=== PATIENT | female | born 1960 | race Caucasian/White ===

== ENCOUNTER 2017-06-03 13:36 | Inpatient (IN) | payer MEDICAID ==
--- NOTE | 2017-06-03 13:54 | ED Physician Chart ---
ED Chief Complaint/HPI - Patient Information Date Seen:: 06/03/17 Time Seen:: 13:20 Chief Complaint:: Abdominal Pain History of Present Illness:: onset x 3 days of intermittent, LLQ, crampy Abdominal Pain radiating to the left flank and groin; no trauma, H/As, S/T, neck pain, C/P. SOB, cough, A/N/V/D/ C, fever, chills, or urinary s/s Allergies:: Allergies Allergy/AdvReac Type Severity Reaction Status Date / Time No Known Allergies Allergy Verified 06/03/17 13:42 Vitals:: Vital Signs - 8 hr 06/03/17 13:42 Temp 98.1 F HR 84 RR 21 BP 121/77 O2 Sat % 97 Historian:: Patient, Family Member Review:: Nurse's Note Reviewed ED Review of Systems - Review of Systems General/Constitutional: No fever, No chills, No weight loss, No weakness, No diaphoresis, No edema, No loss of appetite Skin: No skin lesions, No rash, No bruising Head: No headache, No light-headedness Eyes: No loss of vision, No pain, No diplopia ENT: No earache, No nasal drainage, No sore throat, No tinnitus Neck: No neck pain, No swelling, No thyromegaly, No stiffness, No mass noted Cardio Vascular: No chest pain, No palpitations, No PND, No orthopnea, No edema Pulmonary: No SOB, No cough, No sputum, No wheezing GI: No nausea, No vomiting, No diarrhea, Pain, No melena, No hematochezia, No constipation, No hematemesis G/U: No dysuria, No frequency, No hematuria, No nacturia [employer]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 discharge, No abnormal vaginal bleed, No contraction Musculoskeletal: No bone or joint pain, Back pain, No muscle pain Endocrine: No polyuria, No polydipsia Psychiatric: No prior psych history, No depression, No anxiety, No suicidal ideation, No homicidal ideation, No auditory hallucination, No visual hallucination Hematopoietic: No bruising, No lymphadenopathy Allergic/Immuno: No urticaria, No angioedema Neurological: No syncope, No focal symptoms, No weakness, No paresthesia, No headache, No seizure, No dizziness, No confusion, No vertigo ED Past Medical History - Past Medical History Obtainable: Yes Past Medical History: No significant medical hx Family History: None Social History: Smoker, No Alcohol, No Drug Use, Single Surgical History: None Psychiatricy History: None Medication: Reviewed ED Physical Exam - Physical Examination General/Constitutional: Awake, Well-developed, well-nourished, Alert, No distress, GCS 15, Non-toxic appearing, Ambulatory Head: Atraumatic Eyes: Lids, conjuctiva normal, PERRL, EOMI Skin: Nl inspection, No rash, No skin lesions, No ecchymosis, Well hydrated, No lymphadenopathy ENMT: External ears, nose nl, TM canals nl, Nasal exam nl, Lips, teeth, gums nl , Oropharynx nl, Tonsils nl Neck: Nontender, Full ROM w/o pain, No JVD, No nuchal rigidity, No bruit, No mass, No stridor Other Neck comments:: Supple; no meningeal signs; no cervical tenderness; no bruits Respiratory: Nl effort/Exclusion, Clear to Auscultation, No Wheeze/Rhonchi/Rales Cardio Vascular: RRR, No murmur, gallop, rubs, NL S1 S2, Carotid/Femoral/Distal pulses equal bilaterally GI: No tenderness/rebounding/guarding, No organomegaly, No hernia, Normal BS's, Nondistended, No mass/bruits, No McBurney tenderness, Rectum exam nl Other GI comments:: no pulsatile masses : No CVA tenderness Extremities: No tenderness or effusion, Full ROM, normal strength in all extremities, No edema, Normal digits & nails Neuro/Psych: Alert/oriented, DTR's symmetric, Normal sensory exam, Normal motor strength, Judgement/insight normal, Mood normal, Normal gait, No focal deficits Misc: Normal back, No paraspinal tenderness ED Labs/Radiology/EKG Results - Lab Results Comments:: Na+: 132; H/H: 11.8/35.3; U/A: + Bacteria - EKG Interpretations EKG Time:: 14:16 Rate & Rhythm: 86; NSR Comments:: non-specific st-t changes ED Septic Shock - . Is Septic Shock (SBP<90, OR Lactate>4 mmol\L) present?: No - <6hrs of presentation: Vital Signs: Vital Signs - 8 hr 06/03/17 13:42 Temp 98.1 F HR 84 RR 21 BP 121/77 O2 Sat % 97 ED Reassessment (Disposition) - Diagnosis Diagnosis:: Dx: Abdominal Pain;Flank Pain; Back Pain; Anemia; Hyponatremia; Dehydration; Diverticulitis; UTI
[2017-06-03] MEDS ORDERED: Sodium Chloride 0.9% 1,000 ML IV ONE (13:57)
[2017-06-03] MEDS ORDERED: Morphine Sulfate 2 mg/mL 1mL Syr IVP ONE (13:57)
[2017-06-03] MEDS ORDERED: Morphine Sulfate 2 mg/mL 1mL Syr ONE (14:21)
[2017-06-03 14:32] LABS: HEMATOCRIT 35.3 % (41.0-60); HEMOGLOBIN 11.8 gm/dL (12-16); MEAN CELL VOLUME 88.3 fl (81-100); MEAN CORPUSCULAR HEMOGLOBIN 29.6 pg (27.0-31.0); MEAN CORPUSCULAR HGB CONC 33.5 pg (28.0-36.0); MEAN PLATELET VOLUME 7.7 fl; PLATELET COUNT 189 Th/cmm (150-400); RED CELL DISTRIBUTION WIDTH 13.5 % (11.5-20.0)
[2017-06-03 14:33] LABS: MANUAL DIFF REQUIRED? YES
[2017-06-03 14:41] LABS: INR 0.94 (0.5-1.4); PROTHROMBIN TIME (TEST) 9.8 SECONDS (9.5-11.5)
[2017-06-03 14:44] LABS: ALB/GLOB RATIO 1.2 (1.0-1.8); ALBUMIN 3.5 gm/dL (3.7-5.3); ALKALINE PHOSPHATASE 90 U/L (34-104); ANION GAP 6.1 (7.0-16.0); BILIRUBIN,TOTAL 0.5 mg/dL (0.3-1.0); BUN - UREA NITROGEN 19 mg/dL (7-25); CALCIUM SERUM 8.9 mg/dL (8.6-10.3); CARBON DIOXIDE 28.6 mEq/L (21.0-31.0); CHLORIDE 101 mEq/L (98-107); CHOLESTEROL 132 mg/dL (<200); CREATININE - SERUM 0.6 mg/dL (0.6-1.2); CREATININE KINASE 53 U/L (30-223); GFR AFRICAN-AMERICAN > 60.0 ml/min (>90); GFR NON AFRICAN-AMERICAN > 60.0 ml/min; GLUCOSE 101 mg/dL (70-105); HDL -HIGH DENSITY LIPOPROTEIN 68 mg/dL (23-92); POTASSIUM SERUM 3.7 mEq/L (3.5-5.1); SGOT 33 U/L (13-39); SGPT/ALT 28 U/L (7-52); SODIUM SERUM 132 mEq/L (136-145); TOTAL PROTEIN,SERUM 6.5 gm/dL (6.0-8.3); TRIGLYCERIDES 36 mg/dL (<150)
[2017-06-03 14:45] LABS: AMYLASE SERUM 63 U/L (29-103); LIPASE 12 U/L (11-82)
[2017-06-03] MEDS ORDERED: cefTRIAXone 1 GM in Sodium Chloride 0.9% 50 ML IV ONE (15:02)
[2017-06-03 15:36] LABS: URINE MICROSCOPIC INDICATED? YES; URINE SOURCE CLEAN C
[2017-06-03 15:53] LABS: URINE BILIRUBIN NEGATIVE (NEGATIVE); URINE BLOOD NEGATIVE (NEGATIVE); URINE GLUCOSE (UA) NEGATIVE (NEGATIVE); URINE KETONE NEGATIVE (NEGATIVE); URINE LEUKOCYTE ESTERASE NEGATIVE (NEGATIVE); URINE NITRATE NEGATIVE (NEGATIVE); URINE PROTEIN NEGATIVE (NEGATIVE); URINE UROBILINOGEN 0.2 E.U./dL (0.2 - 1.0)
[2017-06-03 15:59] LABS: URINE CLARITY SLIGHTLY HAZY (CLEAR); URINE COLOR YELLOW
[2017-06-03 16:00] LABS: URINE AMORPHOUS SEDIMENT MODERATE URATES (NONE SEEN); URINE BACTERIA MANY /hpf (NONE SEEN); URINE EPITHELIAL CELLS RARE /lpf (FEW); URINE RBC NONE SEEN /hpf (0-5); URINE WBC 0-2 /hpf (0-5)
[2017-06-03 16:10] LABS: NEUTROPHILS 28 % (40-80)
[2017-06-03 16:11] LABS: BASOPHIL 1 % (0-3); EOSINOPHIL 11 % (0-5); LYMPHOCYTE 53 % (20-50); MONOCYTE 7 % (2-10)
[2017-06-03] MEDS ORDERED: Morphine Sulfate 2 mg/mL 1mL Syr IVP PRN (22:14)
[2017-06-03] MEDS ORDERED: Fleet Enema 135 mL RC ONE (22:23)
[2017-06-04 00:19] VITALS: BP 102/58
[2017-06-04 06:36] LABS: % BASOPHILS 0.8 % (0.0-2.0); % EOSINOPHILS 8.3 % (0.0-5.0); % LYMPHOCYTES 56.6 % (20.0-50.0); % MONOCYTES 6.5 % (2.0-10.0); % NEUTROPHILS 27.8 % (40.0-80.0); EOSINOPHILE ABSOLUTE 0.4 Th/cmm (0.1-0.4); HEMATOCRIT 37.9 % (41.0-60); HEMOGLOBIN 12.7 gm/dL (12-16); LYMPHOCYTE ABSOLUTE 3.1 Th/cmm (1.5-3.0); MEAN CELL VOLUME 88.5 fl (81-100); MEAN CORPUSCULAR HEMOGLOBIN 29.6 pg (27.0-31.0); MEAN CORPUSCULAR HGB CONC 33.4 pg (28.0-36.0); MEAN PLATELET VOLUME 7.9 fl; MONOCYTE ABSOLUTE 0.3 Th/cmm (0.3-1.0); NEUTROPHILE ABSOLUTE 1.4 Th/cmm (1.8-8.0); PLATELET COUNT 177 Th/cmm (150-400); RED BLOOD COUNT 4.28 Mil/cmm (3.80-5.10); RED CELL DISTRIBUTION WIDTH 13.6 % (11.5-20.0); WHITE BLOOD COUNT 5.2 Th/cmm (4.8-10.8)
[2017-06-04 07:07] LABS: ALB/GLOB RATIO 1.1 (1.0-1.8); ALBUMIN 3.1 gm/dL (3.7-5.3); ALKALINE PHOSPHATASE 71 U/L (34-104); ANION GAP 8.1 (7.0-16.0); BILIRUBIN,TOTAL 0.8 mg/dL (0.3-1.0); BUN - UREA NITROGEN 15 mg/dL (7-25); CALCIUM SERUM 8.9 mg/dL (8.6-10.3); CARBON DIOXIDE 27.7 mEq/L (21.0-31.0); CHLORIDE 104 mEq/L (98-107); CREATININE - SERUM 0.6 mg/dL (0.6-1.2); GFR AFRICAN-AMERICAN > 60.0 ml/min (>90); GFR NON AFRICAN-AMERICAN > 60.0 ml/min; GLUCOSE 80 mg/dL (70-105); POTASSIUM SERUM 3.8 mEq/L (3.5-5.1); SGOT 37 U/L (13-39); SGPT/ALT 30 U/L (7-52); SODIUM SERUM 136 mEq/L (136-145)
--- NOTE | 2017-06-04 08:25 | Diagnostic Imaging Report ---
Exam: CT examination of the pelvis. HISTORY: Abdominal pain. Total DLP equals 227 CTDI equals 8.4 Findings: Multiple views of the section the abdomen pelvis obtained from lower thorax to the pubic symphysis without the administration of oral or intravenous contrast material no prior studies available comparison. The study demonstrates atelectatic changes lung bases bilaterally. The study is limited without the administration of intravenous or oral contrast material. There is evidence for hepatomegaly. The spleen is intact. Large amount of fecal content is noted throughout the colon indicative fecal impaction. The abdominal aorta and iliac vessels calcified. The kidneys demonstrate no evidence of obstructive uropathy or nephrolithiasis. The pancreas poorly seen. The gallbladder is distended. The urinary bladder is distended. Enlarged uterus most likely due to fibroid infiltration ultrasound examination of pelvis recommended. Bony structures demonstrate no evidence for lytic or blastic lesions. IMPRESSION: Limited examination without contrast administration and lacunar fat planes. Fecal impaction. Distended gallbladder Distended urinary bladder. Diffuse vascular calcifications. Enlarged uterus, question fibroid infiltration. Degenerative changes lower lumbar sacral spine, retrolisthesis of L4 lumbar vertebra second-degree. Spondylolysis at L5 -S1 level.
--- NOTE | 2017-06-04 08:32 | General Progress Note ---
Subjective - Review of Systems Service Date: 06/04/17 Events since last encounter: consult dictated drug addict, on Methadone has dilated GB - HIDA ordered sciatic pain left leg - MRI ordered Objective - Results Result Diagrams: 06/04/17 06:15 06/04/17 06:15 Recent Labs: Laboratory Last Values WBC 5.2 Th/cmm (4.8-10.8) 06/04/17 06:15 RBC 4.28 Mil/cmm (3.80-5.10) 06/04/17 06:15 Hgb 12.7 gm/dL (12-16) 06/04/17 06:15 Hct 37.9 % (41.0-60) L 06/04/17 06:15 MCV 88.5 fl (81-100) 06/04/17 06:15 MCH 29.6 pg (27.0-31.0) 06/04/17 06:15 MCHC Differential 33.4 pg (28.0-36.0) 06/04/17 06:15 RDW 13.6 % (11.5-20.0) 06/04/17 06:15 Plt Count 177 Th/cmm (150-400) 06/04/17 06:15 MPV 7.9 fl 06/04/17 06:15 Neutrophils % 27.8 % (40.0-80.0) L 06/04/17 06:15 Lymphocytes % 56.6 % (20.0-50.0) H 06/04/17 06:15 Monocytes % 6.5 % (2.0-10.0) 06/04/17 06:15 Eosinophils % 8.3 % (0.0-5.0) H 06/04/17 06:15 Basophils % 0.8 % (0.0-2.0) 06/04/17 06:15 Neutrophils (Manual) 28 % (40-80) L 06/03/17 14:13 Lymphocytes 53 % (20-50) H 06/03/17 14:13 Monocytes 7 % (2-10) 06/03/17 14:13 Eosinophils 11 % (0-5) H 06/03/17 14:13 Basophils 1 % (0-3) 06/03/17 14:13 Smear Path Review Y 06/03/17 14:13 PT 9.8 SECONDS (9.5-11.5) 06/03/17 14:13 INR 0.94 (0.5-1.4) 06/03/17 14:13 Sodium 136 mEq/L (136-145) 06/04/17 06:15 Potassium 3.8 mEq/L (3.5-5.1) 06/04/17 06:15 Chloride 104 mEq/L (98-107) 06/04/17 06:15 Carbon Dioxide 27.7 mEq/L (21.0-31.0) 06/04/17 06:15 Anion Gap 8.1 (7.0-16.0) 06/04/17 06:15 BUN 15 mg/dL (7-25) 06/04/17 06:15 Creatinine 0.6 mg/dL (0.6-1.2) 06/04/17 06:15 Est GFR ( Amer) > 60.0 ml/min (>90) 06/04/17 06:15 Est GFR (Non-Af Amer) > 60.0 ml/min 06/04/17 06:15 BUN/Creatinine Ratio 25.0 06/04/17 06:15 Glucose 80 mg/dL (70-105) 06/04/17 06:15 Calcium 8.9 mg/dL (8.6-10.3) 06/04/17 06:15 Total Bilirubin 0.8 mg/dL (0.3-1.0) 06/04/17 06:15 AST 37 U/L (13-39) 06/04/17 06:15 ALT 30 U/L (7-52) 06/04/17 06:15 Alkaline Phosphatase 71 U/L (34-104) 06/04/17 06:15 Creatine Kinase 53 U/L (30-223) 06/03/17 14:13 Troponin I < 0.01 ng/mL (0.01-0.05) L 06/03/17 14:13 B-Natriuretic Peptide 16.3 pg/mL (5.0-100.0) 06/03/17 14:13 Total Protein 6.0 gm/dL (6.0-8.3) 06/04/17 06:15 Albumin 3.1 gm/dL (3.7-5.3) L 06/04/17 06:15 Globulin 2.9 gm/dL 06/04/17 06:15 Albumin/Globulin Ratio 1.1 (1.0-1.8) 06/04/17 06:15 Triglycerides 36 mg/dL (<150) 06/03/17 14:13 Cholesterol 132 mg/dL (<200) 06/03/17 14:13 LDL Cholesterol Direct 68 mg/dL (75-193) L 06/03/17 14:13 HDL Cholesterol 68 mg/dL (23-92) 06/03/17 14:13 Amylase 63 U/L (29-103) 06/03/17 14:13 Lipase 12 U/L (11-82) 06/03/17 14:13 Serum , Qual NEGATIVE (NEGATIVE) 06/03/17 14:13 Urine Source CLEAN C 06/03/17 13:30 Urine Color YELLOW 06/03/17 13:30 Urine Clarity SLIGHTLY HAZY (CLEAR) 06/03/17 13:30 Urine pH 6.0 (4.6 - 8.0) 06/03/17 13:30 Ur Specific [place] 1.020 (1.005-1.030) 06/03/17 13:30 Urine Protein NEGATIVE mg/dL (NEGATIVE) 06/03/17 13:30 Urine Glucose (UA) NEGATIVE mg/dL (NEGATIVE) 06/03/17 13:30 Urine Ketones NEGATIVE mg/dL (NEGATIVE) 06/03/17 13:30 Urine Blood NEGATIVE (NEGATIVE) 06/03/17 13:30 Urine Nitrate NEGATIVE (NEGATIVE) 06/03/17 13:30 Urine Bilirubin NEGATIVE (NEGATIVE) 06/03/17 13:30 Urine Urobilinogen 0.2 E.U./dL (0.2 - 1.0) 06/03/17 13:30 Ur Leukocyte Esterase NEGATIVE (NEGATIVE) 06/03/17 13:30 Urine RBC NONE SEEN /hpf (0-5) 06/03/17 13:30 Urine WBC 0-2 /hpf (0-5) 06/03/17 13:30 Ur Epithelial Cells RARE /lpf (FEW) 06/03/17 13:30 Amorphous Sediment MODERATE URATES (NONE SEEN) 06/03/17 13:30 Urine Bacteria MANY /hpf (NONE SEEN) H 06/03/17 13:30 Urine Test NEGATIVE 06/03/17 13:30 - Physical Exam Vitals and I&O: Vital Signs Temp 97.7 F 06/04/17 08:00 Pulse 77 06/04/17 08:00 Resp 18 06/04/17 08:00 BP 114/68 06/04/17 08:00 Pulse Ox 96 06/04/17 08:00 Intake & Output 06/03/17 06/04/17 06/04/17 18:59 06:59 18:59 Weight (lbs) 50.031 kg Active Medications: Current Medications Morphine Sulfate (Morphine) 2 mg IVP Q4HR PRN PRN Reason: PAIN Stop: 08/02/17 22:13 Last Admin: 06/04/17 05:59 Dose: 2 mg Ondansetron HCl (Zofran) 4 mg IV Q6HR PRN PRN Reason: Nausea / Vomiting Stop: 08/02/17 22:14 - Procedures Procedures: Procedures Procedure Code Date INJECT/INFUSE NEC 99.29 05/01/11
--- NOTE | 2017-06-04 10:53 | Diagnostic Imaging Report ---
Abdominal ultrasound HISTORY: Pain The liver exhibits a homogeneous parenchyma. No focal lesions. The gallbladder is dilated. No definite intraluminal abnormalities are seen. There is minimal dilatation of the common bile duct (8 mm). Significance should be correlated clinically and with laboratory data. No focal abnormality seen in the region of pancreas. The kidneys appear normal bilaterally. The spleen is normal in size. No other retroperitoneal or intra-abdominal abnormalities. IMPRESSION: 1. Markedly dilated gallbladder. No definite intraluminal abnormalities 2. Mildly dilated common bile duct (8 mm). Etiology and significance uncertain. The findings should be correlated clinically and with laboratory data. If necessary, a CT scan would provide additional assessment.
--- NOTE | 2017-06-04 12:14 | Consultation ---
DATE OF CONSULTATION: 06/04/2017 SURGICAL CONSULT CHIEF COMPLAINT: Abdominal pain and left flank pain. Thank you for referring this patient to me. HISTORY OF PRESENT ILLNESS: This is a 56-year-old female who came in to the Emergency Room because of abdominal pain for 3 days. Pain is mostly in the left lower quadrant and she says it radiates to the left lower extremity. She has had recurrent pain in this area and sometimes on the right leg radiation. 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 LABORATORY STUDIES: Essentially normal. CT scan shows hepatomegaly. A distended gallbladder. PLAN: We will order HIDA scan and MRI of the lumbosacral spine. We will follow with you. JOB# [id number]
--- NOTE | 2017-06-04 14:35 | Consultation ---
DATE OF CONSULTATION: 06/04/2017 INPATIENT GASTROINTESTINAL CONSULTATION REFERRING PHYSICIAN: Dr. Granados. REASON FOR CONSULTATION: Abdominal pain. HISTORY OF PRESENT ILLNESS: This is a 56-year-old female who was admitted to the hospital with alleged abdominal pain. However, by the time I am seeing the patient, she denies having any abdominal pain. She denies nausea, vomiting, diarrhea, constipation, melena, hematochezia, hematemesis, or coffee ground emesis. She states she feels fine. PAST MEDICAL HISTORY: None. PAST SURGICAL HISTORY: None to abdomen. FAMILY HISTORY: Father with colon cancer. SOCIAL HISTORY: Denies tobacco, alcohol or IV drug usage. ALLERGIES: None. CURRENT MEDICATIONS: Morphine, Zofran. REVIEW OF SYSTEMS: Ten point review of system was performed and the pertinent positive was the abdominal pain that seems to have resolved. All other systems were otherwise negative. PHYSICAL EXAMINATION: VITAL SIGNS: Temperature 97.7, breathing 18, pulse of 77, blood pressure 140/60, satting 96%. GENERAL: In no apparent distress. EYES: Anicteric. Normal conjunctivae. HEENT: Normocephalic, atraumatic. Moist mucous membranes. NECK: Soft, supple. CHEST: Clear. No effort. CARDIOVASCULAR: Regular rate and rhythm. ABDOMEN: Soft, nontender, nondistended, normal bowel sounds. SKIN: Warm, dry. EXTREMITIES: Reveal no cyanosis. PSYCHOLOGIC: Alert and oriented x 3. LABORATORY DATA: Show white count 5.2, hemoglobin 12.7, platelets of 177. INR 0.94, total bilirubin 0.8, AST 37, ALT 30, alkaline phosphatase of 71, lipase 12. test was negative. Abdominal ultrasound showed a dilated gallbladder and a slightly dilated common bile duct of unclear significance. CT abdomen and pelvis showed a distended gallbladder. IMPRESSION: This is a 56-year-old female with alleged abdominal pain that has since resolved. The patient was offered GI workup which could include endoscopy, colonoscopy, but she refused to have these invasive testing done. She understands the failure to have proper workup could result in a missed diagnosis such as cancer, missed cure and treatment options resulting in early and unforeseeable disability. She also was informed that given her father's history of colon cancer, she should have a colonoscopy. She would like to think about this and follow up with the primary doctor consider as an outpatient. In the meantime, we can perform a HIDA scan to check to see if any issues with gallbladder such as acalculous cholecystitis. We also performed an MRCP to evaluate the bile duct that was apparently dilated on ultrasound. PLAN: 1. Check HIDA scan. 2. Check MRCP. 3. Continue supportive care. 4. The patient refusing endoscopic procedure such as EGD, colonoscopy. 5. The patient was told to see her primary doctor and reconsider colonoscopy given her family history of colon cancer as an outpatient. She is willing to do this and will see her PCP. Thank you for allowing me to participate. Please call me if any questions. JOB# [id number]
--- NOTE | 2017-06-04 18:55 | History & Physical ---
ADMIT DATE: 06/04/2017 CHIEF COMPLAINT: Left side abdominal pain. HISTORY OF PRESENT ILLNESS: This is a 56-year-old female with underlying history of sciatica who lives at home, was brought into the Emergency Room for evaluation of the left side abdominal pain. The patient had a CT abdomen and pelvis in the Emergency Room suggestive of distended gallbladder and fecal retention, so the patient was subsequently admitted for further treatment. However this morning while I was seeing the patient, she was feeling better. She said that she had more of lower back pain radiating to the left lower quadrant area. She denies any right-sided pain. No associated nausea, no vomiting, no fever, no chills. She does complain of constipation. The patient was seen by Surgeon this morning and due to abnormal CT findings, the patient was scheduled for HIDA scan. Denies any chest pain, no dizziness, no diaphoresis, no palpitations. No fever, no chills, no dysuria or hematuria complaints. PAST MEDICAL HISTORY: Sciatica. PAST SURGICAL HISTORY: Denies. FAMILY HISTORY: Positive for colon cancer in father. ALLERGIES: No known drug allergies. REVIEW OF SYSTEMS: As per HPI, 12-point system review is negative. PHYSICAL EXAMINATION: VITAL SIGNS: Temperature 97.9, pulse 77, respiration 18, blood pressure 105/67, oxygen saturation 93% on room air. Pain 0/10. GENERAL APPEARANCE: The patient does not seem in acute distress, is lying comfortably. HEENT: Unremarkable. HEART: S1, S2 normal. LUNGS: Clear. ABDOMEN: Soft, nontender, no guarding, no distention. NEUROLOGIC: Moves all extremities. Both lower extremities sensation and strength normal. DTR +2. EXTREMITIES: No edema. AVAILABLE LABORATORY DATA: CT scan findings has been reviewed. ASSESSMENT: 1. Left side abdominal pain. 2. Distended gallbladder, rule out acute cholecystitis. 3. Sciatica. PLAN: The patient is admitted to the med-surg floor. Initially kept n.p.o., seen by General Surgery and GI was consulted. HIDA scan is pending. Follow up on the results. Morphine and Zofran as needed. The patient is advised for colon cancer screening, patient understanding. Patient's condition and progress discussed with nursing staff. JOB# [id number]
--- NOTE | 2017-06-05 08:22 | General Progress Note ---
Subjective - Review of Systems Service Date: 06/05/17 Events since last encounter: await GI follow up for dilated GB and CBD Objective - Results Result Diagrams: 06/04/17 06:15 06/04/17 06:15 Recent Labs: Laboratory Last Values WBC 5.2 Th/cmm (4.8-10.8) 06/04/17 06:15 RBC 4.28 Mil/cmm (3.80-5.10) 06/04/17 06:15 Hgb 12.7 gm/dL (12-16) 06/04/17 06:15 Hct 37.9 % (41.0-60) L 06/04/17 06:15 MCV 88.5 fl (81-100) 06/04/17 06:15 MCH 29.6 pg (27.0-31.0) 06/04/17 06:15 MCHC Differential 33.4 pg (28.0-36.0) 06/04/17 06:15 RDW 13.6 % (11.5-20.0) 06/04/17 06:15 Plt Count 177 Th/cmm (150-400) 06/04/17 06:15 MPV 7.9 fl 06/04/17 06:15 Neutrophils % 27.8 % (40.0-80.0) L 06/04/17 06:15 Lymphocytes % 56.6 % (20.0-50.0) H 06/04/17 06:15 Monocytes % 6.5 % (2.0-10.0) 06/04/17 06:15 Eosinophils % 8.3 % (0.0-5.0) H 06/04/17 06:15 Basophils % 0.8 % (0.0-2.0) 06/04/17 06:15 Neutrophils (Manual) 28 % (40-80) L 06/03/17 14:13 Lymphocytes 53 % (20-50) H 06/03/17 14:13 Monocytes 7 % (2-10) 06/03/17 14:13 Eosinophils 11 % (0-5) H 06/03/17 14:13 Basophils 1 % (0-3) 06/03/17 14:13 Smear Path Review Y 06/03/17 14:13 PT 9.8 SECONDS (9.5-11.5) 06/03/17 14:13 INR 0.94 (0.5-1.4) 06/03/17 14:13 Sodium 136 mEq/L (136-145) 06/04/17 06:15 Potassium 3.8 mEq/L (3.5-5.1) 06/04/17 06:15 Chloride 104 mEq/L (98-107) 06/04/17 06:15 Carbon Dioxide 27.7 mEq/L (21.0-31.0) 06/04/17 06:15 Anion Gap 8.1 (7.0-16.0) 06/04/17 06:15 BUN 15 mg/dL (7-25) 06/04/17 06:15 Creatinine 0.6 mg/dL (0.6-1.2) 06/04/17 06:15 Est GFR ( Amer) > 60.0 ml/min (>90) 06/04/17 06:15 Est GFR (Non-Af Amer) > 60.0 ml/min 06/04/17 06:15 BUN/Creatinine Ratio 25.0 06/04/17 06:15 Glucose 80 mg/dL (70-105) 06/04/17 06:15 Calcium 8.9 mg/dL (8.6-10.3) 06/04/17 06:15 Total Bilirubin 0.8 mg/dL (0.3-1.0) 06/04/17 06:15 AST 37 U/L (13-39) 06/04/17 06:15 ALT 30 U/L (7-52) 06/04/17 06:15 Alkaline Phosphatase 71 U/L (34-104) 06/04/17 06:15 Creatine Kinase 53 U/L (30-223) 06/03/17 14:13 Troponin I < 0.01 ng/mL (0.01-0.05) L 06/03/17 14:13 B-Natriuretic Peptide 16.3 pg/mL (5.0-100.0) 06/03/17 14:13 Total Protein 6.0 gm/dL (6.0-8.3) 06/04/17 06:15 Albumin 3.1 gm/dL (3.7-5.3) L 06/04/17 06:15 Globulin 2.9 gm/dL 06/04/17 06:15 Albumin/Globulin Ratio 1.1 (1.0-1.8) 06/04/17 06:15 Triglycerides 36 mg/dL (<150) 06/03/17 14:13 Cholesterol 132 mg/dL (<200) 06/03/17 14:13 LDL Cholesterol Direct 68 mg/dL (75-193) L 06/03/17 14:13 HDL Cholesterol 68 mg/dL (23-92) 06/03/17 14:13 Amylase 63 U/L (29-103) 06/03/17 14:13 Lipase 12 U/L (11-82) 06/03/17 14:13 Serum , Qual NEGATIVE (NEGATIVE) 06/03/17 14:13 Urine Source CLEAN C 06/03/17 13:30 Urine Color YELLOW 06/03/17 13:30 Urine Clarity SLIGHTLY HAZY (CLEAR) 06/03/17 13:30 Urine pH 6.0 (4.6 - 8.0) 06/03/17 13:30 Ur Specific [place] 1.020 (1.005-1.030) 06/03/17 13:30 Urine Protein NEGATIVE mg/dL (NEGATIVE) 06/03/17 13:30 Urine Glucose (UA) NEGATIVE mg/dL (NEGATIVE) 06/03/17 13:30 Urine Ketones NEGATIVE mg/dL (NEGATIVE) 06/03/17 13:30 Urine Blood NEGATIVE (NEGATIVE) 06/03/17 13:30 Urine Nitrate NEGATIVE (NEGATIVE) 06/03/17 13:30 Urine Bilirubin NEGATIVE (NEGATIVE) 06/03/17 13:30 Urine Urobilinogen 0.2 E.U./dL (0.2 - 1.0) 06/03/17 13:30 Ur Leukocyte Esterase NEGATIVE (NEGATIVE) 06/03/17 13:30 Urine RBC NONE SEEN /hpf (0-5) 06/03/17 13:30 Urine WBC 0-2 /hpf (0-5) 06/03/17 13:30 Ur Epithelial Cells RARE /lpf (FEW) 06/03/17 13:30 Amorphous Sediment MODERATE URATES (NONE SEEN) 06/03/17 13:30 Urine Bacteria MANY /hpf (NONE SEEN) H 06/03/17 13:30 Urine Test NEGATIVE 06/03/17 13:30 - Physical Exam Vitals and I&O: Vital Signs Temp 98.2 F 06/05/17 04:00 Pulse 78 06/05/17 04:00 Resp 18 06/05/17 04:00 BP 119/72 06/05/17 04:00 Pulse Ox 98 06/05/17 04:00 Intake & Output 06/04/17 06/05/17 06/05/17 18:59 06:59 18:59 Weight (lbs) 50.031 kg 48.761 kg Other: # Voids 4 # Bowel Movements 0 Active Medications: Current Medications Morphine Sulfate (Morphine) 2 mg IVP Q4HR PRN PRN Reason: PAIN Stop: 08/02/17 22:13 Last Admin: 06/04/17 05:59 Dose: 2 mg Ondansetron HCl (Zofran) 4 mg IV Q6HR PRN PRN Reason: Nausea / Vomiting Stop: 08/02/17 22:14 - Procedures Procedures: Procedures Procedure Code Date INJECT/INFUSE NEC 99.29 05/01/11
--- NOTE | 2017-06-05 08:29 | Diagnostic Imaging Report ---
Nuclear medicine HIDA scan HISTORY: Distended gallbladder COMPARISON: Abdominal ultrasound on 06-[address] abdomen and pelvis on 06/03/2017 Technique/procedure: 5.8 mCi of technetium labeled Choletec was administered intravenously and multiple scintigraphic images were obtained for up to 2 1/2 hours. FINDINGS: Prompt hepatic uptake is demonstrated. Gallbladder uptake is seen after 30 minutes. Small bowel uptake is seen after 60 minutes. IMPRESSION: No evidence of cholecystitis. Slight delayed biliary to bowel transit. Please correlate with clinical findings.
== END 2017-06-05 08:00 | disposition left against medical advice (07) ==
LOC: ER 13:36 → MSI 22:08
PROVIDERS: ADMIT Family Medicine; ATTEND Family Medicine
DX: K82.8 Other specified diseases of gallbladder (principal); E87.1 Hypo-osmolality and hyponatremia; K56.41 Fecal impaction; R10.32 Left lower quadrant pain; R16.0 Hepatomegaly, not elsewhere classified; M54.30 Sciatica, unspecified side; F17.210 Nicotine dependence, cigarettes, uncomplicated; D64.9 Anemia, unspecified; E86.0 Dehydration; N39.0 Urinary tract infection, site not specified; K57.92 Diverticulitis of intestine, part unspecified, without perforation or abscess without bleeding; Z53.21 Procedure and treatment not carried out due to patient leaving prior to being seen by health care provider
CPT/HCPCS: 36415-UA; 76700-TC; 78226-TC; 80053-TC; 80061-TC; 81001-TC; 81025-TC; 82150-TC; 82550-TC; 83690-TC; 83880-TC; 84484-TC; 84703-TC; 85007-TC; 85027-TC; 85610-TC; 87086-90; 93005; 94760; 96375; A9537; J0696; J2060; J2270; J2405; J7030